=== PATIENT | male | born 1985 ===

== ENCOUNTER 2016-09-02 05:15 | Emergency (ER) | payer SELFPAY ==
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
[2016-09-02] MEDS ORDERED: TDAP ADULT 0.5 ML INJ (BOOSTRIX) IM ONE (05:24)
[2016-09-02 05:26] VITALS: BP 123/90; PULSE 106; RESP 16; TEMP 98.6; O2SAT 100
== END 2016-09-02 05:33 | disposition home or self-care (01) ==
DX: S40.811A Abrasion of right upper arm, initial encounter (principal); S40.812A Abrasion of left upper arm, initial encounter; S80.211A Abrasion, right knee, initial encounter; S80.212A Abrasion, left knee, initial encounter; X58.XXXA Exposure to other specified factors, initial encounter